=== PATIENT | male | born 1950 | race Caucasian/White ===

== ENCOUNTER 2023-12-27 13:51 | Outpatient (AMB) | payer MEDICARE, SELFPAY ==
--- NOTE | 2023-12-27 13:58 | HO.NEPHOV_ITS ---
Vital Signs 12/27/23 13:59 Height 5 ft 7 in Weight 195 lb 4 oz BMI 30.6 BP 120/70 Blood Pressure Location Rt brachial Position Sitting Pulse 84 Pulse Source Pulse Oximeter Pulse Oximetry (%) 96 Oxygen Delivery Method Room Air Intake Visit Reasons: Continuing care from [facility]/ [employer] Coordinator Required: No Accompanied by: Self / Same As Patient Allergies codeine Allergy (Verified 12/27/23 13:55) Unknown HPI Comments Details: I had the pleasure of seeing Jeremy in follow-up of his chronic kidney disease. He has history of congenital solitary right kidney with a baseline serum creatinine between 1.3-1.5. One of his sons also has solitary kidney. 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 He had edema from amlodipine in the past. He avoids nonsteroidal anti-inflammatories and maintain good hydration. He had cough from DAMIEN inhibitor which went away after switching to losartan. His blood pressure has been at goal and his weight has been stable. His serum potassium went up to 5.4 but has now come down to 5. He feels well. He had no systemic complaints at the time of this office visit. FORMERLY [facility], [facility] Medical History (Updated 12/27/23 @ 14:54 by Dar Cano MD) Renal artery aneurysm Congenital solitary kidney Chronic kidney disease, stage 3a Hypertension Surgical History (Updated 12/27/23 @ 14:05 by Mary Ruiz MA) History of kidney surgery History of right hip replacement History of knee replacement H/O wrist surgery Social History (Updated 12/27/23 @ 14:03 by Mary Ruiz MA) Alcohol intake: never Patient Tobacco Use Status: Never used Tobacco Review of Systems Const All systems reviewed & are unremarkable except as noted in HPI and below Physical Exam Vital Signs: Last Vital Signs Pulse 84 12/27/23 13:59 BP 120/70 12/27/23 13:59 Pulse Ox 96 12/27/23 13:59 Oxygen Delivery Method Room Air 12/27/23 13:59 BMI result Body Mass Index 30.6 Const General: comfortable and no acute distress Orientation/consciousness: patient oriented x3 HEENT Head: Yes normocephalic Mouth: Normal oral and palatal mucosa present Eyes EOM: EOMs intact bilaterally Neck Neck: Yes supple Resp Auscultation: clear to auscultation bilaterally Cardio Jugular venous distension: no JVD Rate: regular rate GI Palpation (GI): Soft to palpation Auscultation: normal bowel sounds General: Yes no CVA tenderness Back/Spine/Pelvis Back: no CVA tenderness Skin General skin exam: no rashes or lesions noted Neuro General: patient oriented x3 and moves all extremities Extrem General: Yes no pedal edema Results Reviewed Nephrology Results: No Data to Display Assessment & Plan Assessment & Plan (1) Hypertension: Code(s): I10 - Essential (primary) hypertension Category: Medical Qualifiers: Hypertension type: primary hypertension Qualified Code(s): I10 - Essential (primary) hypertension (2) Chronic kidney disease, stage 3a: Code(s): N18.31 - Chronic kidney disease, stage 3a Category: Medical (3) Congenital solitary kidney: Code(s): Q60.0 - Renal agenesis, unilateral Category: Medical Plan Jeremy has a baseline serum creatinine of between 1.3-1.6. He has congenital right solitary kidney. 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 He developed tubular injury postoperatively which has been resolved. Temporarily he was switched to amlodipine at that time and he develop ed edema. He was later started on lisinopril which has caused him cough which resolved when he was switched to losartan 25 mg daily. He does not take excessive potassium in the diet. His last serum potassium is 5 and is serum creatinine 1.56. There is no indication for any Lokelma. He should avoid nonsteroidal anti-inflammatories and maintain good hydration. I did not make any medication changes today. He will benefit from some weight loss. I answered all questions. Follow-up given. 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
[2023-12-27 13:59] VITALS: BP 120/70; PULSE 84; O2SAT 96; BMI 30.6
== END 2023-12-27 14:29 | disposition home or self-care (01) ==
PROVIDERS: Visit Provider Internal Medicine Nephrology
DX: I10 Essential (primary) hypertension (principal); N18.31 Chronic kidney disease, stage 3a; Q60.0 Renal agenesis, unilateral
CPT/HCPCS: 99214

== ENCOUNTER → 2023-12-27 13:51 | Outpatient (BNVA) | payer MEDICARE, SELFPAY | PROVIDERS: Visit Provider Internal Medicine Nephrology | DX: I12.9 Hypertensive chronic kidney disease with stage 1 through stage 4 chronic kidney disease, or unspecified chronic kidney disease (principal); N18.31 Chronic kidney disease, stage 3a; Q60.0 Renal agenesis, unilateral | CPT/HCPCS: 99212 ==

== ENCOUNTER 2025-01-15 14:59 | Outpatient (AMB) | payer BC, SELFPAY ==
--- OUTSIDE RECORDS SUMMARY | 2025-01-11 23:59 | XMS_ITS | Continuity of Care Document ---
Author Organization [facility] Address [address] [place] [address]- Care Team Providers Care Machine Packager Name Role Phone Clubb LINE PALLETIZER, Janay Primary Care Physician [phone] Encounter [facility] Date(s): 12/12/24 - 01/11/[address] [address] Attending Physician: Dandre Abarca Admitting Physician: Dandre Abarca Referring Physician: AdmtrDandre Encounter Type: Triage Allergies, Adverse Reactions, Alerts Substance Criticality Severity Reaction Reaction Severity Status codeine severe nausea and vomiting Active Contrast Dye Skin rash Active Medications aspirin 81 mg oral delayed release tablet 81 mg, 1, tablet, By Mouth, Daily, Refills 0, Maintenance, 08/21/24 1:18:00 PM EDT, Partial fill uponpatient request if the prescription is for a schedule II opioid drug. Start Date: 08/21/24 Status: Ordered Medication Dispense Status: Completed Total Allowed Fills: 1 Fills Dispensed: 0 cephalexin monohydrate 500 mg oral capsule 1 capsule = 500 mg, By Mouth, Every 8 hours, # 30 capsule, 1 Refills, Maintenance, 02/02/23 11:46:00AM EDT, Capsule, [id number], Partial fill upon patient request if the prescriptionis for a schedule II opioid drug., 169, cm, 02/02/23 11:39:00 EDT, Height, 87.5, kg, 01/26/23 9:45:00 EDT, Dry Weight Start Date: 02/02/23 Stop Date: 02/22/23 Status: Ordered Medication Dispense Status: Completed Quantity: 30.0 Unit: capsule Total Allowed Fills: 2 Fills Dispensed: 0 losartan 25 mg oral tablet 25 mg, 1, tablet, By Mouth, Daily, Refills 0, Maintenance, 07/28/21 7:23:00 AM EDT, Partial fill upon patient request if the prescription is for a schedule II opioid drug. Start Date: 07/28/21 Status: Ordered Medication Dispense Status: Completed Total Allowed Fills: 1 Fills Dispensed: 0 Problem List Condition Confirmation Course Effective Dates Status H ealth Status Informant Single congenital right kidney with a baseline creatinine of 1.3 and 1.6 Confirmed Active 2.4 cm calcified right renal artery aneurysm Confirmed Active Chronic kidney disease (CKD), stage III (moderate) Confirmed Active LESION IN THE RIGHT HUMERAL HEAD Confirmed 03/15/02 Active Vitamin D insufficiency Confirmed Active Chronic eosinophilia Confirmed 2001 Active Closed nondisplaced comminuted fracture of proximal shaft of left fibula Confirmed 05/09/16 Active Small bowel obstruction with distention Confirmed 05/30/19 Active Schatzki's ring Confirmed Active Obese class I Confirmed Active OA (osteoarthritis), moderate to severe disc space narrowing at L4-5 and L5-S1. There is moderate left hip joint space narrowing. (Right hip, s/p surgical intervention) Confirmed Active Palpitations Confirmed Active mild dextro scoliosis of the thoracic spine Confirmed 01/02/13 Active PVC (premature ventricular contraction) Confirmed Active Social History Social History Type Response Smoking Status Never (less than 100 in lifetime) entered on: 05/02/19 Sex Sex Representation Male (finding) Patient Care team information Care Team Personnel Name: Aleta Mukherjee Position: [facility] Outreach Member Role: Lif[employer] Consulting Physician Name: Janay Washington NP Position: [facility] Physician - [facility] Medicine Member Role: PCP Address: [address] [place] [address]- Telecom: Name: Dar Cano MD Position: [facility] Renal MD Member Role: Lifetime Consulting Physician Address: [address] [place] [address] [address] [facility] [place] [address]- Telecom: Name: Meenu Salomon Position: [facility] Outreach Member Role: Lifetime Consulting Physician Name: Kayleigh Meier RN Position: [facility] ED RN W/OE and Tasks Member Role: Primary Care Nurse Name: Celia Hayes RN Position: [facility] RN Member Role: Primary Care Nurse Name: Rose Newman RN Position: [facility] RN Member Role: Primary Care Nurse Care Team Related Persons Name: BARBARA KEY Insurance Providers Guarantor name: LIZ [facility] Plan Information #: 1 Payer: [employer] [facility] PPO Payer Identifier: NA Member Number: [id number] Group Number: [id number] Subscriber Identifier: NA Relationship to Subscriber: self Coverage Type: Medicare PPO Coverage Verification Date: Telecom: NA Address: NA
--- NOTE | 2025-01-15 15:11 | HO.NEPHOV_ITS ---
Vital Signs 01/15/25 15:14 Height 5 ft 6 in Weight 187 lb 6 oz BMI 30.2 BP 114/70 Blood Pressure Location Lt brachial Position Sitting Pulse 72 Pulse Source Pulse Oximeter Pulse Oximetry (%) 97 Oxygen Delivery Method Room Air Intake Visit Reasons: Chronic kidney disease, stg 3a-Conf Supervisor Cereal Required: No Accompanied by: Self / Same As Patient Allergies codeine Allergy (Verified 01/15/25 15:13) Unknown HPI Comments Details: I had the pleasure of seeing Jeremy in follow-up of his chronic kidney disease. He has history of congenital solitary right kidney with a baseline serum creatinine between 1.3-1.5. One of his sons also has solitary kidney. 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 He had edema from amlodipine in the past. He avoids nonsteroidal anti-inflammatories and maintain good hydration. He had cough from DAMIEN inhibitor which went away after switching to losartan. His blood pressure has been at goal and his weight has been stable. His serum potassium went up to 5.4, has come down to 5.3. He feels well. He had no systemic complaints at the time of this office visit. He reports his PCP is referring him for workup of elevated platelet count. States has been intermittently elevated between 550-650. Says he has been worked up by hematology 20 years ago, but PCP wants to workup again. No new changes. [facility]LY [facility] Medical History (Updated 12/27/23 @ 14:54 by Dar Cano MD) Renal artery aneurysm Congenital solitary kidney Chronic kidney disease, stage 3a Hypertension Surgical History History of kidney surgery History of right hip replacement History of knee replacement H/O wrist surgery Social History Alcohol intake: never Patient Tobacco Use Status: Never used Tobacco Review of Systems Const All systems reviewed & are unremarkable except as noted in HPI and below Physical Exam Vital Signs: Last Vital Signs Pulse 72 01/15/25 15:14 BP 114/70 01/15/25 15:14 Pulse Ox 97 01/15/25 15:14 Oxygen Delivery Method Room Air 01/15/25 15:14 BMI result Body Mass Index 30.2 Const General: comfortable and no acute distress Orientation/consciousness: patient oriented x3 HEENT Head: Yes normocephalic Mouth: Normal oral and palatal mucosa present Eyes EOM: EOMs intact bilaterally Neck Neck: Yes supple Resp Auscultation: clear to auscultation bilaterally Cardio Jugular venous distension: no JVD Rate: regular rate GI Palpation (GI): Soft to palpation Auscultation: normal bowel sounds General: Yes no CVA tenderness Back/Spine/Pelvis Back: no CVA tenderness Skin General skin exam: no rashes or lesions noted Neuro General: patient oriented x3 and moves all extremities Extrem General: Yes no pedal edema and No edema Assessment & Plan Assessment & Plan (1) Hypertension: Code(s): I10 - Essential (primary) hypertension Category: Medical Qualifiers: Hypertension type: primary hypertension Qualified Code(s): I10 - Essential (primary) hypertension (2) Chronic kidney disease, stage 3a: Code(s): N18.31 - Chronic kidney disease, stage 3a Category: Medical (3) Congenital solitary kidney: Code(s): Q60.0 - Renal agenesis, unilateral Category: Medical Plan Jeremy has a baseline serum creatinine of between 1.3-1.65. He has congenital right solitary kidney. 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 He developed tubular injury postoperatively which has been resolved. He has been on amlodipine in the past which caused edema; lisinopril was discontinued in the past due to side effect of cough. He has since been on losartan 25mg daily and has been tolerating well. He does not take excessive potassium in the diet. His last serum potassium is 5 and is serum creatinine 1.56. There is no indication for any Lokelma. He should avoid nonsteroidal anti-inflammatories and maintain good hydration. He avoid added salt in his diet and exercises regularly. I did not make any medication changes today. He will benefit from some weight loss. I answered all questions. Follow-up given. Orders: Orders Basic Metabolic Panel 1 Year N18.30 - Chronic kidney disease, stage 3 unspecified Protein Creatinine Ratio, Ur 1 Year N18.31 - Chronic kidney disease, stage 3a, Q60.0 - Renal agenesis, unilateral Coding Level of Care Code Est Pt Level 4 (91818) Diagnoses Primary hypertension I10 Hypertension type: primary hypertension Chronic kidney disease, stage 3a N18.31 Congenital solitary kidney Q60.0
[2025-01-15 15:14] VITALS: BP 114/70; PULSE 72; O2SAT 97; BMI 30.2
--- OUTSIDE RECORDS SUMMARY | 2025-01-15 17:10 | XMS_ITS | Clinical Summary ---
Author Organization [facility] Address [address] [facility] [address] [place] [address] Phone Care Team Providers Care Acoustical Carpenter Name Role Phone Kilo Mishra DO Primary Care Provider [phone] Allergies Active Allergy Reactions Criticality Noted Date Comments Codeine Nausea and/or Vomiting Low 09/16/2020 Iodinated Contrast Media Rash Low 06/06/2022 Medications losartan (COZAAR) 25 MG tablet losartan 25 mg tablet TAKE 1 TABLET BY MOUTH EVERY DAY 07/28/2021 Active traMADoL (ULTRAM) 50 mg tablet Take 1-2 tablets (50-100 mg total) by mouth every 8 (eight) hours as needed for pain (specific location in comments). 15 tablet 06/16/2022 Active Active Problems No known active problems Family History Medical History Relation Comments Cancer Father Heart disease Mother Relation Status Comments Father Mother Social History Tobacco Use Types Packs/Day Years Used Date Smoking Tobacco: Never Smokeless Tobacco: Never Tobacco Cessation:Counseling Given: Not Answered Alcohol Use Standard Drinks/Week Comments Never 0 (1 standard drink = 0.6 oz pur e alcohol) Education Answer Date Recorded Are you interested in more education? Not on hansel e 09/09/2022 Are you concerned about learning? Not on file 09/09/2022 No 09/09/2022 No 09/09/2022 Digital Access Answer Date Recorded No 10/10/2022 No 10/10/2022 Reliable internet access at home? Not on file 10/10/2022 Device with a working camera? Not on file Intimate Partner Violence Answer Date R ecorded Are you denied basic needs s uch as food, clothing, or medical care? No 06/16/2022 In the past 12 months have y ou been in a relationship with a person who hurts, threatens, or tries to control you? No 06/16/2022 Are you denied basic needs s uch as food, clothing, or medical care? No 06/16/2022 In the past 12 months have y ou been in a relationship with a person who hurts, threatens, or tries to control you? No 06/16/2022 Sex and Gender Information Value Date Recorded Sex Assigned at Not on file Legal Sex Male 6:51 AM EST Gender Identity Not on file Sexual Orientation Not on file Last Filed Vital Signs Vital Sign Reading Time Taken Comments Blood Pressure 129/72 04/16/2024 9:56 AM EST Pulse 62 04/16/2024 9:56 AM EST Temperature 36.6 C (97.9 F) 06/16/2022 1:00 PM EST Respiratory Rate 17 06/16/2022 1:53 PM EST Oxygen Saturation 96% 06/16/2022 1:53 PM EST Inhaled Oxygen Concentration - - Weight 88.5 kg (195 lb 3.2 oz) 04/16/2024 9:56 A M EST Height 168.3 cm (5' 6.25 ) 04/16/2024 9:56 AM ES T Body Mass Index 31.27 04/16/2024 9:56 AM EST Plan of Treatment Health Maintenance Due Date Last Done Comments Adult Td,Tdap Booster 1952 CREATININE LEVEL 1952 LIPID PANEL 1952 POTASSIUM LEVEL 1952 DEPRESSION SCREENING 1964 HEPATITIS C SCREENING 1970 COLOGUARD 1997 COLONOSCOPY 1997 COLORECTAL CANCER SCREENING 1997 FIT TEST 1997 FOBT 1997 SIGMOIDOSCOPY 1997 VIRTUAL COLONOSCOPY 1997 PNEUMOCOCCAL VACCINES (50+ years) (1 of 1 - PCV) 2002 ZOSTER VACCINES (1 of 2) 2002 COVID-19 VACCINE ( season) 2024 02/28/2022, 08/28/2021, 03/11/2021, Additional history exists INFLUENZA VACCINE (#1) 2024 2, 04/13/2021, 02/26/2020, Additional history exists RSV VACCINE (1 - 1-dose 75+ series) 08/09/2027 SMOKING STATUS SCREENING (Once After 26 Yrs) Completed 04/16/2024 HEPATITIS A VACCINES Aged Out No long er eligible based on patient's age to complete this topic HIB VACCINES Aged Out No longer eligi ble based on patient's age to complete this topic MENINGOCOCCAL VACCINES (ACWY) Aged Out No longer eligible based on patient's age to complete this topic MENINGOCOCCAL VACCINES (B) Aged Out N o longer eligible based on patient's age to complete this topic Medical Devices Implanted Type Area Roofer Gypsum Device Identifier Shelf Expiration Date Model / Serial / Lot Graft Bone 5ml Dbx Allo Dbm Demineralized Matrix Freeze Dried Putty Syringe - [id number] Implanted:Qty: 1 on 06/16/2022 by Sadiq Saucedo MD at [facility] [employer] Right: Wrist MUSCULOSKELETAL TRANSPLANT 03/18/2024 [id number] / / [id number] Screw Bone 14x2.4mm Ss Variable Angle Locking Self Tapping Full Thread T8 Stardrive Recess - [id number] Implanted:Qty: 3 on 06/16/2022 by Sadiq Saucedo MD at [facility] Right: Wrist [employer] . 14 / / Screw Bone 16x2.4mm Ss Variable Angle Locking Self Tapping Full Thread T8 Stardrive Recess - [id number] Implanted:Qty: 1 on 06/16/2022 by Sadiq Saucedo MD at [facility] Right: Wrist [employer] . 16 / / Screw Bone 10x2.4mm Ss Variable Angle Locking Self Tapping Full Thread T8 Stardrive Recess - [id number] Implanted:Qty: 1 on 06/16/2022 by Sadiq Saucedo MD at [facility] Right: Wrist [employer] .1 10 / / Prosthetic Joint Prosthetic Joint Right: Hip Prosthetic Joint Prosthetic Joint Bilater al: Knee Plate Wrist 2.4mm 15 6 Hole Va Lcp Ss Locking Fusion Intercarpal - [id number] Implanted:Qty: 1 on 06/16/2022 by Sadiq Saucedo MD at [facility] Right: Wrist [employer] 02.111.3 00 / / Insurance MEDICARE PPO BLUE REPLACEMENT Advance Directives For more information, please contact: [phone] (9AM - 5PM [place], Monday-Monday) Documents on File Type Date Recorded Patient Miniature Model Maker Expl anation Healthcare Proxy 06/17/2022 2:05 PM * Full Code (Latest Code Status on File) Date Activated Date Inactivated Comments 06/16/2022 8:16 AM Question Answer Comments Code Status Confirmed With: Patient Care Teams Acoustical Carpenter Relationship Specialty Start Date End Date Kilo Mishra, [address] [address] [email or web address] PCP - General Family Medicine 03/21/22 Additional Source Comments The information contained in this document represents components of the legal health record. It is not the complete legal health record.[facility]
--- OUTSIDE RECORDS SUMMARY | 2025-01-15 17:10 | XMS_ITS | Encounter Summary ---
Author Organization [facility] Address [address] [facility] [address] [place] [address] Phone Care Team Providers Care Textile Conversion Manager Name Role Phone Kilo Mishra DO Primary Care Provider [phone] Encounter Details Date Type Department Care Team (Late st Contact Info) Description 06/16/2022 Procedure Pass OR Admitting Dept - Virtual Department [address] [place] [address] Social History Tobacco Use Types Packs/Day Years Used Date Smoking Tobacco: Never Smokeless Tobacco: Never Alcohol Use Standard Drinks/Week Comments Never 0 (1 standard drink = 0.6 oz pur e alcohol) Intimate Partner Violence Answer Date R ecorded Are you denied basic needs s [facility] as food, clothing, or medical care? No 06/16/2022 In the past 12 months have y ou been in a relationship with a person who hurts, threatens, or tries to control you? No 06/16/2022 Are you denied basic needs s [facility] as food, clothing, or medical care? No 06/16/2022 In the past 12 months have y ou been in a relationship with a person who hurts, threatens, or tries to control you? No 06/16/2022 Sex and Gender Information Value Date Recorded Sex Assigned at Not on file Legal Sex Male 6:51 AM EST Gender Identity Not on file Sexual Orientation Not on file documented as of this encounter Plan of Treatment Not on file documented as of this encounter Visit Diagnoses Not on filedocumented in this encounter Care Teams Textile Conversion Manager Relationship Specialty Start Date End Date Kilo Mishra DO [address] [address] [email or web address] PCP - General Family Medicine 03/21/22 documented as of this encounter Additional Source Comments The information contained in this document represents components of the legal health record. It is not the complete legal health record.[facility]
--- OUTSIDE RECORDS SUMMARY | 2025-01-15 17:10 | XMS_ITS | Clinical Summary ---
Author Organization [facility] Address [address] [place] [address] Phone Care Team Providers Care Mink Farmer Name Role Phone Kilo Mishra DO Primary Care Provider [phone] Allergies Active Allergy Reactions Criticality Noted Date Comments Codeine Other (see comments) 09/16/2020 Iodinated Contrast Media Other (see comments),Rash Low 09/16/2020 Medications acetaminophen (TYLENOL) 325 MG tablet Take 2 tablets by mouth every 4 (four) hours Active losartan (COZAAR) 25 MG tabletIndicatio ns:Hypertension TAKE 1 TABLET(25 MG) BY MOUTH 1 TIME EACH DAY 90 tablet 3 07/05/2024 Active Active Problems Problem Noted Date Diagnosed Date Absent kidney 01/18/2023 01/18/2023 Eosinophil count above reference range Lower esophageal ring 01/18/2023 01/18/2023 Obese class I 01/18/2023 01/18/2023 Palpitations 01/18/2023 01/18/2023 Osteoarthritis 01/18/2023 01/18/2023 Ventricular premature complex 01/18/2023 Disorder of vitamin D 01/12/2022 Hypertension 01/12/2022 Aneurysm of right renal artery 09/16/2020 Stage 3a chronic kidney disease 09/16/2020 Hypertensive 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 09/16/2020 Hyperkalemia 09/16/2020 Acquired renal artery aneurysm 09/16/2020 Intestinal obstruction, not otherwise specified 05/30/2019 01/18/2023 Fracture of fibula 05/09/2016 01/18/2023 Scoliosis deformity of spine 01/02/201310/2022 Disorder of upper arm 03/15/2002 01/18/2023 Family History Relation Status Comments Father Mother Social History Tobacco Use Types Packs/Day Years Used Date Smoking Tobacco: Never Smokeless Tobacco: Never Tobacco Cessation:Counseling Given: Not Answered Alcohol Use Standard Drinks/Week Comments Never 0 (1 standard drink = 0.6 oz pur e alcohol) Sex and Gender Information Value Date Recorded Sex Assigned at Not on file Legal Sex Male 4:57 PM EST Gender Identity Not on file Sexual Orientation Not on file Last Filed Vital Signs Vital Sign Reading Time Taken Comments Blood Pressure 120/70 01/18/2023 1:49 PM EDT Pulse 67 01/18/2023 1:49 PM EDT Temperature - - Respiratory Rate - - Oxygen Saturation 96% 01/12/2022 4:02 PM EDT Inhaled Oxygen Concentration - - Weight 88.9 kg (196 lb) 01/18/2023 1:49 PM EDT Height 172.7 cm (5' 8 ) 03/20/2020 12:00 PM EST Body Mass Index 29.8 03/20/2020 12:00 PM EST Plan of Treatment Health Maintenance Due Date Last Done Comments Pneumococcal Vaccine: 50+ Years (1 of 2 - PCV) [birth year]09/1971 Colorectal Cancer Screening: Annual FOBT 2001 Colorectal Cancer Screening: Colonoscopy 2001 Colorectal Cancer Screening: Sigmoidoscopy 2001 Influenza Vaccine (#1) 2025 2, 04/13/2021, 02/26/2020, Additional history exists Hepatitis B Vaccine Aged Out No longe r eligible based on patient's age to complete this topic Insurance [facility] Care Teams Mink Farmer Relationship Specialty Start Date End Date Kilo Mishra DO [address] [place] [id number] PCP - General Family Medicine 01/18/23
== END 2025-01-15 15:24 | disposition home or self-care (01) ==
LOC: HO.HKA 14:59
PROVIDERS: PCP Nurse Practitioner Family; Visit Provider Internal Medicine Nephrology
DX: I10 Essential (primary) hypertension (principal); N18.31 Chronic kidney disease, stage 3a; Q60.0 Renal agenesis, unilateral
CPT/HCPCS: 99214